=== PATIENT | female | born 1985 | race Caucasian/White ===

== ENCOUNTER 2017-06-19 15:34 | Outpatient (CLI) | payer BC ==
[2017-06-19 16:46] LABS: #Eosinphils 0.1 thou/uL (0.0-0.7); #Lymphocytes 1.8 thou/uL (1.20-3.40); #Monocytes 0.5 thou/uL (0.11-0.59); #Neutrophils 7.9 thou/uL (1.40-6.50); %Basophils 0.4 % (0.0-1.0); %Eosinophils 0.6 % (0.0-10.0); %Lymphocytes 17.7 % (21.0-51.0); %Monocytes 4.5 % (0.0-10.0); %Neutrophils 76.7 % (42.0-75.0); Hemoglobin 13.3 g/dL (12.0-16.0); Mean Corpuscular HGB CONC 33.5 g/dL (32.0-36.0); Mean Corpuscular Hemoglobin 29.2 pg (27.0-31.0); Mean Corpuscular Volume 87.2 fl (81.0-99.0); Mean Platelet Volume 7.3 fL (7.4-10.4); Platelet Count 263 thou/uL (130-400); RBC Distribution Width 13.3 % (11.5-14.5); Red Blood Cell (RBC) Count 4.55 mill/uL (4.20-5.40); White Blood Cell (WBC) Count 10.3 thou/uL (4.8-10.8)
[2017-06-19 17:09] LABS: ALT (SGPT) 16 U/L (8-55); AST (SGOT) 17 U/L (5-34); Albumin 4.5 g/dL (3.5-5.0); Alkaline Phosphatase 79 U/L (40-150); Anion Gap 14 mmol/L (10-20); BUN (Urea Nitrogen) 14 mg/dL (7.0-18.7); Bilirubin, Total 0.3 mg/dL (0.2-1.2); Calc. Creatinine Clearance 0 mL/min (70-130); Calcium 9.3 mg/dL (7.8-10.44); Carbon Dioxide 21 mmol/L (22-29); Chloride 104 mmol/L (98-107); Estimated GFR-MDRD 74; Globulin 3.2 g/dL (2.4-3.5); Glucose 95 mg/dL (70-105); Potassium 4.1 mmol/L (3.5-5.1); Protein, Total 7.7 g/dL (6.0-8.3); Sodium 135 mmol/L (136-145)
== END 2017-06-19 15:35 | disposition home or self-care (01) ==
LOC: LABBT 15:34
PROVIDERS: ATTEND Surgery
DX: Z01.812 Encounter for preprocedural laboratory examination (principal); K43.9 Ventral hernia without obstruction or gangrene
CPT/HCPCS: 80053; 85025

== ENCOUNTER 2017-06-21 07:15 | Day surgery (SDC) | payer BC ==
[2017-06-19 15:52] VITALS: BMI 37.5
[2017-06-21] MEDS ORDERED: CEFAZOLIN/Water 2 GM/20 ML SYRINGE ONE (08:10)
[2017-06-21] MEDS ORDERED: Bupivacaine/Epinephrine 0.25% 30 ML VIAL ONE (09:18)
[2017-06-21] MEDS ORDERED: Midazolam HCl 2 mg/2 ml Vial ONE ×2 (09:30→09:32)
[2017-06-21] MEDS ORDERED: Scopolamine 1.5 mg/72 hour Patch ONE (09:30)
[2017-06-21] MEDS ORDERED: Fentanyl 250 MCG/5 ML VIAL ONE (09:32)
[2017-06-21] MEDS ORDERED: Lidocaine 1% (PF) 30 ML VIAL ONE (09:32)
[2017-06-21] MEDS ORDERED: diphenhydrAMINE 50 MG/ML VIAL IM PRN (10:33)
[2017-06-21] MEDS ORDERED: diphenhydrAMINE 25 MG CAP PO PRN (10:33)
[2017-06-21] MEDS ORDERED: Morphine CADD 1 MG/ML CADD IVPB PRN (10:33)
[2017-06-21] MEDS ORDERED: Promethazine HCl 25 MG/ML VIAL SLOW IVP PRN (10:33)
[2017-06-21] MEDS ORDERED: Promethazine HCl 25 MG/ML VIAL IM PRN ×3 (10:33→11:08)
[2017-06-21] MEDS ORDERED: Zolpidem Tartrate 5 MG TAB PO PRN (10:33)
[2017-06-21] MEDS ORDERED: diphenhydrAMINE 50 MG/ML VIAL IVP PRN (10:33)
[2017-06-21] MEDS ORDERED: Naloxone HCl 0.4 mg/ml Vial IV PRN (10:33)
[2017-06-21] MEDS ORDERED: Meperidine HCl/PF 25 MG/ML VIAL SLOW IVP PRN (10:33)
[2017-06-21] MEDS ORDERED: Ondansetron HCl/PF 4 MG/2 ML Vial IVP PRN ×2 (10:33→11:08)
[2017-06-21] MEDS ORDERED: Communication Order-Pharmacy FS SCH (10:45)
[2017-06-21] MEDS ORDERED: Dextrose 50% Abboject 50 ML SYRINGE SLOW IVP PRN (11:08)
[2017-06-21] MEDS ORDERED: hydrALAZINE 20 MG/ML VIAL SLOW IVP PRN (11:08)
[2017-06-21] MEDS ORDERED: Calcium Carbonate 500 MG ChewTAB PO PRN (11:08)
[2017-06-21] MEDS ORDERED: Dextrose 5% in Water 1,000 ML IV PRN (11:08)
[2017-06-21] MEDS ORDERED: Mag-Al 1200 mg/1200 mg/30 ML UDCUP PO PRN (11:08)
[2017-06-21] MEDS ORDERED: MORPHINE 10 MG/ML SYRINGE ONE (11:11)
[2017-06-21] MEDS ORDERED: Morphine 4 MG/ML Carpuject SLOW IVP PRN (11:26)
[2017-06-21] MEDS ORDERED: HYDROmorphone 0.5 MG/0.5 ML SYRINGE SLOW IVP PRN (11:27)
[2017-06-21] MEDS ORDERED: HYDROmorphone 0.5 MG/0.5 ML SYRINGE ONE (11:38)
--- NOTE | 2017-06-21 11:58 | OP ---
DATE OF PROCEDURE: 06/21/2017 PREOPERATIVE DIAGNOSIS: Epigastric ventral hernia. SURGEON: Adi Hartman M.D. PROCEDURE: Laparoscopic ventral hernia repair with mesh. INDICATIONS: The patient is a 31-year-old female. She is morbidly obese. She has an enlarging symp tomatic epigastric hernia. She was advised to lose weight. She said she could not, she has tried. She took the additional risk of recurrence to undergo the surgery. FINDINGS: About a 3 cm defect containing omentum. This was closed primarily transversely utilizing a 0 V-Loc suture and then reinforced with a 4 x 6 inch Proceed mesh. PROCEDURE IN DETAIL: After informed consent was obtained, the patient was taken to the operating gretchen m and given general endotracheal anesthesia. She was placed in the supine position. The right side was elevated slightly. Local anesthesia infiltrated subcutaneously and deep. A 12 mm incision made in the right flank. Veress needle inserted. Drop test performed. Pneumoperitoneum was created to a volume of 2 liters of carbon dioxide. Utilizing a bladeless 12 mm trocar and 0 degree laparoscope d irect visual entry the abdominal cavity was performed. Pneumoperitoneum was created to a pressure of 15 mmHg. Under direct vision, two 5-mm ports were placed in the right upper and right lower quadran t. The hernia was reduced and adhesions lysed utilizing the LigaSure. Once it was reduced, the fer ia defect was closed transversely utilizing a running 0 V-Loc suture of PDS. Then a 4 x 6 inch piece of Proceed mesh was fashioned, 0 Ethibond was placed at 4 quadrants. It was hydrated. It was james d, and inserted intra-abdominally. Utilizing the GraNee needle, the sutures were individually graspe d and the mesh optimally positioned to cover the defect. It was further secured to the abdominal wal l with the SecureStrap tacker. Then the 12 mm port was closed utilizing a GraNee needle and 0 Vicryl suture. The abdomen decompressed. Hemostasis was assured. Trocars and retractors removed. The sk in closed with interrupted 4-0 Rapide. Dermabond applied. The patient tolerated the procedure well and was transferred to recovery in good condition. Sponge and needle count verified correct x2.
[2017-06-21] MEDS ORDERED: D5 1/2 NS w/20 mEq KCL 1,000 ML ONE (12:12)
[2017-06-21] MEDS: Acetaminophen 1,000 MG in Premix Bag 1 BAG IVPB SCH ×3 (13:21→23:26)
[2017-06-21] MEDS: Ketorolac Tromethamine 30 MG/ML VIAL IVP SCH ×3 (13:21→23:27)
[2017-06-21] MEDS: D5 1/2 NS w/20 mEq KCL 1,000 ML IV SCH ×2 (14:38→21:31)
[2017-06-21] MEDS ORDERED: Lidocaine 1% PF 5 ML VIAL ONE (14:53)
[2017-06-21] MEDS ORDERED: PROPOFOL 200 MG/20 ML VIAL ONE (14:53)
[2017-06-21] MEDS ORDERED: Ketorolac Tromethamine 30 MG/ML VIAL ONE (14:53)
[2017-06-21] MEDS ORDERED: Glycopyrrolate 0.2 MG/ML 5 ML SYRINGE ONE (14:53)
[2017-06-21] MEDS ORDERED: Ondansetron HCl/PF 4 MG/2 ML Vial ONE (14:53)
[2017-06-21] MEDS ORDERED: Dexamethasone 20 MG/5 ML VIAL ONE (14:53)
[2017-06-21] MEDS: CEFAZOLIN/Water 2 GM/20 ML SYRINGE SLOW IVP SCH ×2 (16:57→23:26)
[2017-06-21] MEDS: Ondansetron HCl/PF 4 MG/2 ML Vial IVP PRN ×2 (17:44→23:36)
[2017-06-21] MEDS: Famotidine 20 MG TAB PO SCH ×2 (20:15→21:31)
[2017-06-21] MEDS: Famotidine/PF 20 mg/2ml Vial SLOW IVP SCH (21:27)
[2017-06-22] MEDS: D5 1/2 NS w/20 mEq KCL 1,000 ML IV SCH ×2 (05:20→18:34)
[2017-06-22] MEDS: Acetaminophen 1,000 MG in Premix Bag 1 BAG IVPB SCH ×2 (05:20→12:21)
[2017-06-22] MEDS: Ketorolac Tromethamine 30 MG/ML VIAL IVP SCH ×2 (05:21→12:22)
[2017-06-22 05:46] LABS: #Lymphocytes 1.1 thou/uL (1.20-3.40); #Monocytes 0.4 thou/uL (0.11-0.59); %Basophils 0.3 % (0.0-1.0); %Eosinophils 0.4 % (0.0-10.0); %Lymphocytes 14.2 % (21.0-51.0); %Monocytes 5.7 % (0.0-10.0); %Neutrophils 79.4 % (42.0-75.0); Hemoglobin 12.1 g/dL (12.0-16.0); Mean Corpuscular HGB CONC 32.5 g/dL (32.0-36.0); Mean Corpuscular Hemoglobin 29.5 pg (27.0-31.0); Mean Corpuscular Volume 90.9 fl (81.0-99.0); Mean Platelet Volume 7.6 fL (7.4-10.4); Platelet Count 243 thou/uL (130-400); RBC Distribution Width 13.1 % (11.5-14.5); Red Blood Cell (RBC) Count 4.08 mill/uL (4.20-5.40); White Blood Cell (WBC) Count 7.6 thou/uL (4.8-10.8)
[2017-06-22] MEDS ORDERED: Enoxaparin Sodium 40 MG/0.4 ML SYRINGE SC SCH (09:00)
[2017-06-22] MEDS: CEFAZOLIN/Water 2 GM/20 ML SYRINGE SLOW IVP SCH (09:06)
[2017-06-22] MEDS: Ondansetron HCl/PF 4 MG/2 ML Vial IVP PRN (09:07)
[2017-06-22] MEDS: Famotidine/PF 20 mg/2ml Vial SLOW IVP SCH (09:07)
[2017-06-22] MEDS: Famotidine 20 MG TAB PO SCH (09:07)
[2017-06-22 12:26] VITALS: BP 137/90; TEMP 97.7
--- NOTE | 2017-06-22 18:50 | DIS ---
DISCHARGE DIAGNOSIS: Ventral hernia. PROCEDURES DURING ADMISSION: Laparoscopic ventral hernia repair with mesh. HOSPITAL COURSE: The patient was admitted, taken to the operating room where she underwent a hernia repair with mesh and primary closure of the muscle. Postoperatively, she has done well. Pain is con trolled. She is tolerating regular diet. She is discharged home in good condition on hydrocodone an d Zofran. She will follow up with me in 2 weeks.
== END 2017-06-22 15:45 | disposition home or self-care (01) ==
LOC: SDC 07:15 → SURG A 11:32 → SDC 06-22 15:45
PROVIDERS: ATTEND Surgery
PROC: 0WUF4JZ Supplement Abdominal Wall with Synthetic Substitute, Percutaneous Endoscopic Approach (ICD-10-PCS; principal; 2017-06-21)
DX: K43.9 Ventral hernia without obstruction or gangrene (principal); K66.8 Other specified disorders of peritoneum; E66.01 Morbid (severe) obesity due to excess calories; Z68.37 Body mass index [BMI] 37.0-37.9, adult; Z88.5 Allergy status to narcotic agent
CPT/HCPCS: 36415; 85025; 96374; J0131; J1100; J1170; J1885; J2001; J2250; J2270; J2274; J2405; J2704; J3010; S0028

== ENCOUNTER 2018-08-14 12:11 | Outpatient (CLI) | payer BC ==
--- NOTE | 2018-08-14 15:20 | NM ---
HEPATOBILIARY SCAN: HISTORY:Right upper quadrant abdominal pain. RADIOPHARMACEUTICAL: 5.1 mCi Technetium 99m Mebrofenin injected intravenously FINDINGS: There is normal tracer extraction by the liver with normal excretion into the biliary tracts and smal l bowel loops and normal filling of the gallbladder. The calculated gallbladder ejection fraction following an oral fatty meal measures 80%. IMPRESSION:Normal exam.
== END 2018-08-14 12:12 | disposition home or self-care (01) ==
LOC: NM 12:11
PROVIDERS: ATTEND Internal Medicine
DX: R10.11 Right upper quadrant pain (principal)
CPT/HCPCS: 78227; A9537

== ENCOUNTER 2020-09-08 15:19 | Outpatient (CLI) | payer BC | END 2020-09-08 15:20 | disposition home or self-care (01) | LOC: DTY/OP 15:19 | PROVIDERS: ATTEND Surgery | DX: E66.01 Morbid (severe) obesity due to excess calories (principal) | CPT/HCPCS: 97802 ==

== ENCOUNTER 2020-09-22 10:30 | Inpatient (IN) | payer OTHER ==
[2020-09-27] MEDS ORDERED: Heparin 5,000 UNITS/ML VIAL ONE (11:02)
[2020-09-27] MEDS ORDERED: Scopolamine 1.5 mg/72 hour Patch ONE (11:45)
[2020-09-27] MEDS ORDERED: Midazolam HCl 2 mg/2 ml Vial ONE (11:50)
[2020-09-27] MEDS ORDERED: Fentanyl 100 MCG/2 ML VIAL ONE ×4 (12:00→14:01)
[2020-09-27] MEDS ORDERED: Fentanyl 250 MCG/5 ML VIAL ONE (12:00)
[2020-09-27] MEDS ORDERED: Lidocaine 1% w/Epinephrine 1:100K 20 ML VIAL ONE (12:05)
[2020-09-27] MEDS ORDERED: Bupivacaine 0.25% HCL 30 ML VIAL ONE (12:05)
[2020-09-27] MEDS ORDERED: Ondansetron PF 4 MG/2 ML Vial ONE (12:17)
[2020-09-27] MEDS ORDERED: Lidocaine 1% PF 5 ML VIAL ONE (12:17)
[2020-09-27] MEDS ORDERED: PROPOFOL 200 MG/20 ML VIAL ONE (12:17)
[2020-09-27] MEDS ORDERED: Dexamethasone 20 MG/5 ML VIAL ONE (12:17)
[2020-09-27] MEDS ORDERED: Rocuronium Bromide 10 MG/ML (10ML VIAL) ONE (12:17)
[2020-09-27] MEDS ORDERED: Glycopyrrolate 0.2 MG/ML 5 ML SYRINGE ONE (12:17)
[2020-09-27] MEDS ORDERED: Hydrocodone-Acetamin 15 ML UDCUP PO PRN (13:53)
[2020-09-27] MEDS ORDERED: diphenhydrAMINE 50 MG/ML VIAL IVP PRN (13:53)
[2020-09-27] MEDS ORDERED: Promethazine HCl 25 MG/ML VIAL IM PRN ×2 (13:53→13:58)
[2020-09-27] MEDS ORDERED: hydrALAZINE 20 MG/ML VIAL SLOW IVP PRN (13:53)
[2020-09-27] MEDS ORDERED: Dextrose 5% in Water 1,000 ML IV PRN (13:53)
[2020-09-27] MEDS ORDERED: Ondansetron PF 4 MG/2 ML Vial IVP PRN ×2 (13:53→13:58)
[2020-09-27] MEDS ORDERED: Dextrose 50% Abboject 50 ML SYRINGE SLOW IVP PRN (13:53)
[2020-09-27] MEDS ORDERED: HYDROmorphone 10 mg/100 ml CADD IVPB PRN (13:58)
[2020-09-27] MEDS ORDERED: Naloxone HCl 0.4 mg/ml Vial IV PRN (13:58)
[2020-09-27] MEDS ORDERED: diphenhydrAMINE 50 MG/ML VIAL IM PRN (13:58)
[2020-09-27] MEDS ORDERED: diphenhydrAMINE 25 MG CAP PO PRN (13:58)
[2020-09-27] MEDS ORDERED: Communication Order-Pharmacy FS SCH (14:00)
[2020-09-27] MEDS ORDERED: Promethazine HCl 25 MG/ML VIAL ONE (14:19)
[2020-09-27] MEDS: D5 1/2 NS w/20 mEq KCL 1,000 ML IV SCH ×2 (16:24→20:22)
[2020-09-27 16:41] VITALS: BMI 46.3
[2020-09-27] MEDS ORDERED: Pantoprazole 40 MG VIAL IVP SCH (17:00)
[2020-09-27] MEDS ORDERED: Enoxaparin Sodium 40 MG/0.4 ML SYRINGE SC SCH (21:00)
[2020-09-28] MEDS: diphenhydrAMINE 50 MG/ML VIAL IVP PRN ×2 (01:09→04:31)
[2020-09-28] MEDS ORDERED: Hydrocerin (Eucerin) Cream 120 gm Jar TOP PRN (01:51)
[2020-09-28] MEDS: D5 1/2 NS w/20 mEq KCL 1,000 ML IV SCH (04:28)
[2020-09-28 05:48] LABS: #Lymphocytes 0.9 thou/uL (1.20-3.40); #Monocytes 0.4 thou/uL (0.11-0.59); #Neutrophils 8.3 thou/uL (1.40-6.50); %Basophils 0.1 % (0.0-1.0); %Eosinophils 0.1 % (0.0-10.0); %Lymphocytes 9.4 % (21.0-51.0); %Monocytes 4.6 % (0.0-10.0); %Neutrophils 85.9 % (42.0-75.0); Hemoglobin 10.6 g/dL (12.0-16.0); Mean Corpuscular HGB CONC 31.2 g/dL (32.0-36.0); Mean Corpuscular Hemoglobin 26.6 pg (27.0-31.0); Mean Corpuscular Volume 85.3 fL (78.0-98.0); Mean Platelet Volume 8.7 fL (7.4-10.4); Platelet Count 224 thou/uL (130-400); RBC Distribution Width 15.9 % (11.5-14.5); Red Blood Cell (RBC) Count 3.99 mill/uL (4.20-5.40); White Blood Cell (WBC) Count 9.6 thou/uL (4.8-10.8)
[2020-09-28 06:06] LABS: Anion Gap 12 mmol/L (10-20); BUN (Urea Nitrogen) 6 mg/dL (7.0-18.7); Calc. Creatinine Clearance 233 mL/min (70-130); Calcium 8.6 mg/dL (7.8-10.44); Carbon Dioxide 28 mmol/L (22-29); Chloride 101 mmol/L (98-107); Glucose 109 mg/dL (70-105); Potassium 3.6 mmol/L (3.5-5.1); Sodium 137 mmol/L (136-145)
[2020-09-28 07:44] VITALS: TEMP 98.1
[2020-09-28] MEDS ORDERED: Atenolol 50 MG TAB PO SCH (09:00)
[2020-09-28] MEDS ORDERED: Pantoprazole 40 MG VIAL IVP SCH (09:00)
[2020-09-28] MEDS ORDERED: Hydrocodone-Acetamin 15 ML UDCUP PO PRN (11:09)
[2020-09-28 11:10] VITALS: BP 135/83
== END 2020-09-28 12:17 | disposition home or self-care (01) | DRG 621 ==
LOC: SURG A 09-27 09:24
PROVIDERS: ADMIT Surgery; ATTEND Surgery
PROC: 0DB64Z3 Excision of Stomach, Percutaneous Endoscopic Approach, Vertical (ICD-10-PCS; principal; 2020-09-27)
DX: E66.01 Morbid (severe) obesity due to excess calories (principal); K21.9 Gastro-esophageal reflux disease without esophagitis; F39 Unspecified mood [affective] disorder; E78.2 Mixed hyperlipidemia; I10 Essential (primary) hypertension; R73.03 Prediabetes; Z79.899 Other long term (current) drug therapy; Z90.710 Acquired absence of both cervix and uterus; Z88.5 Allergy status to narcotic agent
CPT/HCPCS: 36415; 80048; 85025; 88307; C9113; J0360; J0690; J1100; J1200; J1644; J1650; J2250; J2405; J2550; J2704; J3010; J3480; S0020

== ENCOUNTER 2020-09-22 10:32 | Outpatient (CLI) | payer BC ==
[2020-09-22 13:02] LABS: #Monocytes 0.5 10x3/uL (0.0-1.1); #Neutrophils 9.7 10x3/uL (1.5-8.4); %Basophils 0.3 % (0.0-2.0); %Eosinophils 0.3 % (0.0-6.0); %Lymphocytes 9.9 % (18.0-47.0); %Monocytes 4.3 % (0.0-10.0); %Neutrophils 84.8 % (40.0-75.0); Hemoglobin 11.7 g/dL (12.0-15.5); Mean Corpuscular HGB CONC 30.6 g/dL (32.0-36.0); Mean Corpuscular Hemoglobin 25.8 pg (27.0-33.0); Mean Corpuscular Volume 84.3 fl (81.6-98.3); Mean Platelet Volume 10.5 fl (7.4-10.4); Platelet Count 264 10x3/uL (150-450); RBC Distribution Width 17.3 % (11.5-14.5); Red Blood Cell (RBC) Count 4.53 10x6/uL (3.90-5.03); White Blood Cell (WBC) Count 11.5 10x3/uL (3.5-10.5)
[2020-09-22 13:04] LABS: ALT (SGPT) 30 U/L (8-55); AST (SGOT) 28 U/L (5-34); Albumin 4.2 g/dL (3.5-5.0); Alkaline Phosphatase 82 U/L (40-110); Anion Gap 15 mmol/L (10-20); BUN (Urea Nitrogen) 16 mg/dL (7.0-18.7); Bilirubin, Total 0.4 mg/dL (0.2-1.2); Calc. Creatinine Clearance 0 mL/min (70-130); Calcium 9.5 mg/dL (7.8-10.44); Carbon Dioxide 27 mmol/L (22-29); Chloride 102 mmol/L (98-107); Globulin 2.7 g/dL (2.4-3.5); Glucose 100 mg/dL (70-105); Protein, Total 6.9 g/dL (6.0-8.3); Sodium 140 mmol/L (136-145)
[2020-09-22 14:22] LABS: Hemoglobin A1c 6.1 % (4.0-6.0)
[2020-09-23 06:31] LABS: SARS-CoV-2 PCR by NAA Not Detected (NotDetected)
== END 2020-09-22 10:33 | disposition home or self-care (01) ==
LOC: LABBT 10:32
PROVIDERS: ATTEND Surgery
DX: Z01.818 Encounter for other preprocedural examination (principal); E66.01 Morbid (severe) obesity due to excess calories; Z20.822 Contact with and (suspected) exposure to COVID-19
CPT/HCPCS: 71046; 80053; 83036; 85025; 93005; 93010; U0003; U0005